=== PATIENT | male | born 1985 | race Caucasian/White ===

== ENCOUNTER 2016-08-18 00:41 | Emergency (ER) | payer SELFPAY ==
[~2016-08-18] VITALS: Ht 177.8 cm; Wt 66.0 kg
[~2016-08-18 00:41] MED LIST: FLOMAX0.4 MG PO; MOTRIN600 MG PO; PERCOCET 5/31 TABLET PO; ZOFRAN ODT4 MG PO
[2016-08-18 01:28] LABS: HEMATOCRIT 43.9 % (38.0-50.0); MCH 30.5 PG (29.0-34.0); MCHC 33.5 G/DL (30.0-36.0); MCV 91.1 FL (86-99); MEAN PLAT.VOLUME 10.5 uM^3 (9.0-12.4); PLATELET COUNT 203 K/uL (156-360); RBC DIS.WIDTH-CV 12.3 % (11.8-14.6); RBC DIS.WIDTH-SD 41.2 % (39-53); RED BLOOD COUNT 4.82 M/uL (4.00-5.50); WHITE BLOOD COUNT 6.5 K/uL (4.1-10.2)
[2016-08-18 01:40] LABS: CHLORIDE 104 mEq/L (99-109); POTASSIUM 4.3 mEq/L (3.7-5.4); SODIUM 139 mEq/L (136-147)
[2016-08-18 01:42] LABS: GLUCOSE 105 mg/dL (70-99)
[2016-08-18 01:43] LABS: ANION GAP 7 MEQ/L (2-14)
[2016-08-18 01:44] LABS: TOTAL BILIRUBIN 1.2 mg/dL (0.0-1.0)
[2016-08-18 01:45] LABS: ALKALINE PHOSPHATASE 83 IU/L (3-129)
[2016-08-18 01:46] LABS: GFR ESTIMATE (CALCULATED) > 59 mL/min/
[2016-08-18 01:47] LABS: UREA NITROGEN (BUN) 11 mg/dL (9-23)
[2016-08-18 01:49] LABS: LIPASE 21 U/L (1.0-51.0)
[2016-08-18 01:50] LABS: TROP-I INTERPRETATION NEGATIVE; TROPONIN-I < 0.01 ng/mL (0.0-0.30)
[2016-08-18 04:25] LABS: TROP-I INTERPRETATION NEGATIVE; TROPONIN-I < 0.01 ng/mL (0.0-0.30)
[2016-08-18 04:46] VITALS: BP 119/61
== END 2016-08-18 04:49 | disposition home or self-care (01) ==
LOC: EME → EDBD 00:41 → EME 04:49
PROVIDERS: Emergency Medicine
DX: R07.9 Chest pain, unspecified (principal); F14.10 Cocaine abuse, uncomplicated; F17.200 Nicotine dependence, unspecified, uncomplicated; Z71.6 Tobacco abuse counseling
CPT/HCPCS: 71020; 80053; 83690; 84484; 85027; 93005; 99281; 99285; J1885